=== PATIENT | female | born 1965 | race African-American/Black ===

== ENCOUNTER → 2018-12-19 | Outpatient (CLI) | payer OTHER ==
[2015-12-08 12:40] VITALS: BP 157/79
[~2018-12-19] MED LIST: ALPR2TAB2 PO; CARV6.2541 PO; CELE200C PO; CITA10TA8 PO; IBUP1TAB84 PO; LAMO100T5 PO; NAPR220T70 PO; OLME40TA12 PO
--- NOTE | 2018-12-19 16:49 | RAD ---
KNEE RIGHT 3V History: Knee pain Technique: 3 views right knee. Comparison: None. Findings: Normal alignment. No fracture. Moderate tricompartment DJD joint space narrowing and marginal osteophyte formation most prominent within the medial and patellofemoral compartments. Small knee joint effusion. Calcination along the medial aspect of the femoral condyle, may relate to prior injury. Impression: 1. Moderate knee DJD. 2. Small right knee joint effusion. Electronically signed by: Nicholas Lopes DO (12/19/2018 4:46 PM) [facility]
== END | disposition home or self-care (01) ==
LOC: DXRAD 11:37
PROVIDERS: ATTEND General Practice
DX: M17.11 Unilateral primary osteoarthritis, right knee (principal); M25.761 Osteophyte, right knee; M25.461 Effusion, right knee
CPT/HCPCS: 73562